=== PATIENT | female | born 1970 ===

== ENCOUNTER 2020-03-15 06:35 | Inpatient (IN) ==
[2020-03-15] MEDS ORDERED: ALBUTEROL 2.5 MG/3 ML NEB RESP TX PRN (08:34)
[2020-03-15] MEDS ORDERED: ONDANSETRON 4 MG/2 ML VIAL IV PRN (08:34)
[2020-03-15] MEDS ORDERED: DOCUSATE SODIUM 100 MG CAPSULE PO PRN (08:34)
[2020-03-15] MEDS ORDERED: hydrALAZINE 20 MG/1 ML VIAL IV PRN (08:42)
[2020-03-15] MEDS ORDERED: MYCOPHENOLATE MOFETIL 250 MG CAPSULE PO SCH (09:00)
[2020-03-15 09:56] LABS: ABG Base Excess -4.1 MMOL/L (-2.5-2.5); ABG HCO3 20.6 MMOL/L (20-26); ABG Oxygen Saturation 99.1 % (95-100); ABG PCO2 36.4 MM HG (35-48); ABG PH 7.371 (7.35-7.45); ABG PO2 213.6 MM HG (80-95); ABG TCO2 21.7 MMOL/L (23-27)
[2020-03-15] MEDS: APIXABAN 5 MG TABLET PO SCH ×2 (10:28→21:30)
[2020-03-15] MEDS: FUROSEMIDE 40 MG/4 ML VIAL IV SCH (10:28)
[2020-03-15] MEDS: carvediloL 6.25 MG TABLET PO SCH ×2 (10:28→21:30)
[2020-03-15] MEDS: PANTOPRAZOLE 40 MG VIAL IV SCH (10:33)
[2020-03-15] MEDS: methylPREDNISolone SOD SUC 40 MG/1 ML VIAL IV SCH ×2 (10:37→22:03)
[2020-03-15] MEDS: LEVOFLOXACIN INJ 750 MG in PREMIX 1 EACH IV SCH (10:40)
[2020-03-15 11:03] LABS: Basophils % 0.1 % (0.0-0.8); Hematocrit 33.9 VOL% (35.7-47.0); Immature Granulocytes Absolute 0.14 #; Lymphocytes # 0.6 10*3/uL (1.4-4.0); Lymphocytes % 3.8 % (21.3-54.2); Mean Corpuscular HGB Conc 32.4 GM/DL (32-36); Mean Corpuscular Volume 94.7 FL (87-102); Mean Platelet Volume 9.7 FL (9.6-12.0); Monocytes % 2.3 % (1.7-12.7); Neutrophils % 92.8 % (38.7-73.9); Platelet Count 128 T/CUMM (130-400); Red Blood Count 3.58 MC/CUMM (3.8-5.5); Red Cell Distribution Width 16.9 % (9.3-17.3); White Blood Count 14.4 T/CUMM (4-12)
[2020-03-15 11:24] LABS: Hypochromasia Slight; Lymphocytes 4 % (20-55); Ovalocytes Slight; Segmented Neutrophils 94 % (50-85); Total Cells Counted 100
[2020-03-15 11:35] LABS: Albumin 2.3 G/DL (3.4-5.0); Bilirubin,Total 0.7 MG/DL (0.2-1.0); Calcium 8.2 MG/DL (8.5-10.1); Osmolality,Calculated 266.7 MOS/KG (273-304); Total Protein 7.1 G/DL (6.4-8.3)
[2020-03-15] MEDS: NITROGLYCERIN 2% OINT 1 INCH/GM PACK TOP SCH ×2 (13:50→17:00)
[2020-03-15] MEDS ORDERED: MIDAZOLAM 100 MG in SODIUM CHLORIDE 0.9% 80 ML IV PRN (14:07)
[2020-03-15] MEDS ORDERED: MAGNESIUM SULF RIDER 4 GM in PREMIX 1 EACH IV PRN (15:14)
[2020-03-15] MEDS: MAGNESIUM SULF RIDER 2 GM in PREMIX 1 EACH IV PRN (17:00)
[2020-03-15] MEDS ORDERED: NOREPINEPHRINE 4 MG/4 ML VIAL IV ONE (17:51)
[2020-03-15] MEDS ORDERED: NOREPINEPHRINE 8 MG in SODIUM CHLORIDE 0.9% 242 ML IV PRN (18:18)
[2020-03-15] MEDS: MYCOPHENOLATE MOFETIL 250 MG CAPSULE PO SCH (21:30)
[2020-03-15] MEDS: FERROUS SULFATE 325 MG TABLET PO SCH (21:30)
[2020-03-16] MEDS: NITROGLYCERIN 2% OINT 1 INCH/GM PACK TOP SCH ×3 (00:30→11:52)
[2020-03-16] MEDS: MORPHINE 4 MG/1 ML VIAL IV PRN ×2 (01:00→09:39)
[2020-03-16 06:12] LABS: Basophils % 0.4 % (0.0-0.8); Hematocrit 29.6 VOL% (35.7-47.0); Hemoglobin 9.4 GM/DL (12.0-16.0); Immature Granulocytes Absolute 0.15 #; Lymphocytes # 0.1 10*3/uL (1.4-4.0); Lymphocytes % 1.7 % (21.3-54.2); Mean Corpuscular HGB Conc 31.8 GM/DL (32-36); Mean Corpuscular Volume 94.9 FL (87-102); Mean Platelet Volume 9.8 FL (9.6-12.0); Monocytes % 2.1 % (1.7-12.7); Neutrophils % 93.8 % (38.7-73.9); Platelet Count 105 T/CUMM (130-400); Red Blood Count 3.12 MC/CUMM (3.8-5.5); Red Cell Distribution Width 16.7 % (9.3-17.3); White Blood Count 7.5 T/CUMM (4-12)
[2020-03-16 06:29] LABS: Lymphocytes 2 % (20-55); Segmented Neutrophils 96 % (50-85); Total Cells Counted 100
[2020-03-16 06:30] LABS: Anisocytosis 1+; Ovalocytes Slight; Platelet Estimate Decreased
[2020-03-16 06:31] LABS: Ferritin 1049.4 ng/ml (8-252)
[2020-03-16 06:37] LABS: Osmolality,Calculated 272.2 MOS/KG (273-304)
[2020-03-16 06:45] LABS: ABG Base Excess -0.8 MMOL/L (-2.5-2.5); ABG HCO3 21.6 MMOL/L (20-26); ABG Oxygen Saturation 99.2 % (95-100); ABG PCO2 28.3 MM HG (35-48); ABG PO2 402.5 MM HG (80-95); ABG TCO2 22.4 MMOL/L (23-27)
[2020-03-16] MEDS: carvediloL 6.25 MG TABLET PO SCH ×2 (08:54→21:30)
[2020-03-16] MEDS: FERROUS SULFATE 325 MG TABLET PO SCH ×3 (08:54→21:30)
[2020-03-16] MEDS: FUROSEMIDE 40 MG/4 ML VIAL IV SCH (08:54)
[2020-03-16] MEDS: MYCOPHENOLATE MOFETIL 250 MG CAPSULE PO SCH ×2 (08:54→21:30)
[2020-03-16] MEDS: SPIRONOLACTONE 25 MG TABLET PO SCH (08:54)
[2020-03-16] MEDS: PANTOPRAZOLE 40 MG VIAL IV SCH (08:54)
[2020-03-16] MEDS: APIXABAN 5 MG TABLET PO SCH ×2 (08:54→21:30)
[2020-03-16] MEDS: methylPREDNISolone SOD SUC 40 MG/1 ML VIAL IV SCH ×2 (09:00→21:52)
[2020-03-16] MEDS: LEVOFLOXACIN INJ 750 MG in PREMIX 1 EACH IV SCH (09:00)
[2020-03-16] MEDS: FLUCONAZOLE 150 MG TABLET PO SCH (15:00)
[2020-03-17] MEDS: MORPHINE 4 MG/1 ML VIAL IV PRN (04:30)
[2020-03-17 05:31] LABS: Basophils % 0.4 % (0.0-0.8); Hematocrit 28.7 VOL% (35.7-47.0); Hemoglobin 9.3 GM/DL (12.0-16.0); Immature Granulocytes % 4.9 %; Immature Granulocytes Absolute 0.22 #; Lymphocytes # 0.1 10*3/uL (1.4-4.0); Lymphocytes % 1.8 % (21.3-54.2); Mean Corpuscular HGB Conc 32.4 GM/DL (32-36); Mean Corpuscular Volume 94.7 FL (87-102); Mean Platelet Volume 9.9 FL (9.6-12.0); Monocytes % 2.2 % (1.7-12.7); Neutrophils % 90.7 % (38.7-73.9); Platelet Count 102 T/CUMM (130-400); Red Blood Count 3.03 MC/CUMM (3.8-5.5); Red Cell Distribution Width 16.6 % (9.3-17.3)
[2020-03-17 05:32] LABS: White Blood Count 4.5 T/CUMM (4-12)
[2020-03-17 05:52] LABS: Hypochromasia 1+; Lymphocytes 2 % (20-55); Microcytosis Slight; Ovalocytes Slight; Platelet Estimate Decreased; Segmented Neutrophils 96 % (50-85); Total Cells Counted 100
[2020-03-17 06:00] LABS: Calcium 8.6 MG/DL (8.5-10.1)
[2020-03-17 06:01] LABS: Osmolality,Calculated 266.8 MOS/KG (273-304)
[2020-03-17] MEDS: PANTOPRAZOLE 40 MG TABLET PO SCH (08:12)
[2020-03-17] MEDS: carvediloL 6.25 MG TABLET PO SCH ×2 (08:12→20:09)
[2020-03-17] MEDS: FLUCONAZOLE 150 MG TABLET PO SCH (08:12)
[2020-03-17] MEDS: MYCOPHENOLATE MOFETIL 250 MG CAPSULE PO SCH ×2 (08:12→20:08)
[2020-03-17] MEDS: APIXABAN 5 MG TABLET PO SCH ×2 (08:13→20:09)
[2020-03-17] MEDS: FUROSEMIDE 40 MG/4 ML VIAL IV SCH (08:13)
[2020-03-17] MEDS: FERROUS SULFATE 325 MG TABLET PO SCH ×3 (08:13→20:08)
[2020-03-17] MEDS: SPIRONOLACTONE 25 MG TABLET PO SCH (08:13)
[2020-03-17] MEDS: LEVOFLOXACIN 750 MG TABLET PO SCH (08:17)
[2020-03-17] MEDS: methylPREDNISolone SOD SUC 40 MG/1 ML VIAL IV SCH ×2 (10:30→21:16)
[2020-03-17] MEDS: clonazePAM 0.5 MG TABLET PO PRN ×2 (13:38→20:08)
[2020-03-18 05:06] LABS: Basophils % 0.5 % (0.0-0.8); Eosinophils % 0.2 % (0.00-10.9); Hematocrit 28.3 VOL% (35.7-47.0); Hemoglobin 9.2 GM/DL (12.0-16.0); Immature Granulocytes % 5.1 %; Immature Granulocytes Absolute 0.21 #; Lymphocytes # 0.2 10*3/uL (1.4-4.0); Lymphocytes % 3.6 % (21.3-54.2); Mean Corpuscular HGB Conc 32.5 GM/DL (32-36); Mean Platelet Volume 10.4 FL (9.6-12.0); Monocytes % 4.4 % (1.7-12.7); Neutrophils % 86.2 % (38.7-73.9); Platelet Count 105 T/CUMM (130-400); Red Blood Count 2.98 MC/CUMM (3.8-5.5); Red Cell Distribution Width 16.7 % (9.3-17.3); White Blood Count 4.1 T/CUMM (4-12)
[2020-03-18 05:08] LABS: Calcium 8.6 MG/DL (8.5-10.1); Osmolality,Calculated 268.5 MOS/KG (273-304)
[2020-03-18 05:30] LABS: Eosinophils 1 % (0-10); Hypochromasia 1+; Lymphocytes 4 % (20-55); Microcytosis Slight; Ovalocytes Slight; Platelet Estimate Decreased; Segmented Neutrophils 92 % (50-85); Total Cells Counted 100
[2020-03-18] MEDS: carvediloL 6.25 MG TABLET PO SCH ×2 (08:30→20:08)
[2020-03-18] MEDS: APIXABAN 5 MG TABLET PO SCH ×2 (08:30→20:08)
[2020-03-18] MEDS: LEVOFLOXACIN 750 MG TABLET PO SCH (08:30)
[2020-03-18] MEDS: FERROUS SULFATE 325 MG TABLET PO SCH ×3 (08:30→20:08)
[2020-03-18] MEDS: MYCOPHENOLATE MOFETIL 250 MG CAPSULE PO SCH ×2 (08:30→20:08)
[2020-03-18] MEDS: SPIRONOLACTONE 25 MG TABLET PO SCH (08:30)
[2020-03-18] MEDS: PANTOPRAZOLE 40 MG TABLET PO SCH (08:31)
[2020-03-18] MEDS: FLUCONAZOLE 150 MG TABLET PO SCH (08:31)
[2020-03-18] MEDS: FUROSEMIDE 40 MG/4 ML VIAL IV SCH ×2 (08:32→17:53)
[2020-03-18] MEDS: methylPREDNISolone SOD SUC 40 MG/1 ML VIAL IV SCH ×2 (09:57→23:17)
[2020-03-18] MEDS ORDERED: DIGOXIN 0.5 MG/2 ML AMP ONE (12:58)
[2020-03-18] MEDS ORDERED: DIGOXIN 0.5 MG/2 ML AMP IV ONE ×2 (13:07→19:30)
[2020-03-18] MEDS: clonazePAM 0.5 MG TABLET PO PRN ×2 (15:30→23:17)
[2020-03-18] MEDS: CLORAZEPATE 7.5 MG TABLET PO PRN (19:37)
[2020-03-18] MEDS: ISOSORBIDE DINITRATE 10 MG TABLET PO SCH (20:09)
[2020-03-18] MEDS: hydrALAZINE 10 MG TABLET PO SCH (20:12)
[2020-03-19] MEDS: CLORAZEPATE 7.5 MG TABLET PO PRN (03:43)
[2020-03-19] MEDS: clonazePAM 0.5 MG TABLET PO PRN ×2 (03:43→20:44)
[2020-03-19 05:13] LABS: Hematocrit 30.5 VOL% (35.7-47.0); Hemoglobin 9.6 GM/DL (12.0-16.0); Immature Granulocytes % 2.9 %; Immature Granulocytes Absolute 0.07 #; Lymphocytes # 0.1 10*3/uL (1.4-4.0); Lymphocytes % 3.3 % (21.3-54.2); Mean Corpuscular HGB Conc 31.5 GM/DL (32-36); Mean Corpuscular Volume 96.5 FL (87-102); Monocytes % 2.9 % (1.7-12.7); Neutrophils % 90.9 % (38.7-73.9); Platelet Count 98 T/CUMM (130-400); Red Blood Count 3.16 MC/CUMM (3.8-5.5); Red Cell Distribution Width 16.7 % (9.3-17.3); White Blood Count 2.4 T/CUMM (4-12)
[2020-03-19 05:24] LABS: Calcium 8.8 MG/DL (8.5-10.1); Osmolality,Calculated 269.5 MOS/KG (273-304)
[2020-03-19 05:42] LABS: Hypochromasia 1+; Lymphocytes 2 % (20-55); Microcytosis Slight; Ovalocytes Slight; Platelet Estimate Decreased; Segmented Neutrophils 95 % (50-85); Total Cells Counted 100
[2020-03-19] MEDS ORDERED: LOSARTAN 25 MG TABLET PO SCH (09:00)
[2020-03-19] MEDS: MAGNESIUM SULF RIDER 2 GM in PREMIX 1 EACH IV PRN (10:17)
[2020-03-19] MEDS: MYCOPHENOLATE MOFETIL 250 MG CAPSULE PO SCH ×2 (10:18→20:45)
[2020-03-19] MEDS: PANTOPRAZOLE 40 MG TABLET PO SCH (10:18)
[2020-03-19] MEDS: ISOSORBIDE DINITRATE 10 MG TABLET PO SCH ×3 (10:18→20:45)
[2020-03-19] MEDS: FERROUS SULFATE 325 MG TABLET PO SCH ×3 (10:18→20:45)
[2020-03-19] MEDS: SPIRONOLACTONE 25 MG TABLET PO SCH (10:18)
[2020-03-19] MEDS: APIXABAN 5 MG TABLET PO SCH ×2 (10:19→20:44)
[2020-03-19] MEDS: LEVOFLOXACIN 750 MG TABLET PO SCH (10:19)
[2020-03-19] MEDS: carvediloL 6.25 MG TABLET PO SCH (10:19)
[2020-03-19] MEDS: hydrALAZINE 10 MG TABLET PO SCH ×3 (10:20→20:44)
[2020-03-19] MEDS ORDERED: DIGOXIN 0.125 MG TABLET PO SCH (13:00)
[2020-03-19] MEDS: FLUCONAZOLE 150 MG TABLET PO SCH (17:08)
[2020-03-19] MEDS: predniSONE 10 MG TABLET PO SCH (17:09)
[2020-03-19] MEDS: FUROSEMIDE 40 MG/4 ML VIAL IV SCH (17:14)
[2020-03-19] MEDS: methylPREDNISolone SOD SUC 40 MG/1 ML VIAL IV SCH (17:14)
[2020-03-19] MEDS: METOPROLOL SUCCINATE XL 25 MG TABLET PO SCH (20:45)
[2020-03-20 08:16] LABS: Hematocrit 29.3 VOL% (35.7-47.0); Hemoglobin 9.5 GM/DL (12.0-16.0); Immature Granulocytes % 0.5 %; Immature Granulocytes Absolute 0.01 #; Lymphocytes # 0.2 10*3/uL (1.4-4.0); Lymphocytes % 7.7 % (21.3-54.2); Mean Corpuscular HGB Conc 32.4 GM/DL (32-36); Mean Corpuscular Volume 93.9 FL (87-102); Mean Platelet Volume 9.7 FL (9.6-12.0); Monocytes % 2.9 % (1.7-12.7); Neutrophils % 88.9 % (38.7-73.9); Platelet Count 85 T/CUMM (130-400); Red Blood Count 3.12 MC/CUMM (3.8-5.5); Red Cell Distribution Width 16.9 % (9.3-17.3); White Blood Count 2.1 T/CUMM (4-12)
[2020-03-20 09:11] LABS: Albumin 2.3 G/DL (3.4-5.0); Bilirubin,Total 0.6 MG/DL (0.2-1.0); Calcium 8.7 MG/DL (8.5-10.1); Osmolality,Calculated 268.4 MOS/KG (273-304); Total Protein 6.6 G/DL (6.4-8.3)
[2020-03-20] MEDS: SACUBITRIL/VALSARTAN 49-51 MG TABLET PO SCH (09:28)
[2020-03-20] MEDS: FLUCONAZOLE 150 MG TABLET PO SCH (09:28)
[2020-03-20] MEDS: LEVOFLOXACIN 750 MG TABLET PO SCH (09:29)
[2020-03-20] MEDS: ISOSORBIDE DINITRATE 10 MG TABLET PO SCH ×3 (09:29→21:19)
[2020-03-20] MEDS: MYCOPHENOLATE MOFETIL 250 MG CAPSULE PO SCH ×2 (09:29→21:18)
[2020-03-20] MEDS: APIXABAN 5 MG TABLET PO SCH ×2 (09:29→21:18)
[2020-03-20] MEDS: PANTOPRAZOLE 40 MG TABLET PO SCH (09:29)
[2020-03-20] MEDS: hydrALAZINE 10 MG TABLET PO SCH ×3 (09:30→21:18)
[2020-03-20] MEDS: METOPROLOL SUCCINATE XL 25 MG TABLET PO SCH ×2 (09:30→21:19)
[2020-03-20] MEDS: SPIRONOLACTONE 25 MG TABLET PO SCH (09:30)
[2020-03-20] MEDS: predniSONE 10 MG TABLET PO SCH (09:31)
[2020-03-20] MEDS: FERROUS SULFATE 325 MG TABLET PO SCH ×3 (09:32→21:19)
[2020-03-20] MEDS: FUROSEMIDE 40 MG TABLET PO SCH (09:32)
[2020-03-20 12:02] LABS: Hypochromasia 1+; Microcytosis 1+; Platelet Estimate Decreased
[2020-03-21 06:24] LABS: Eosinophils # 0.1 10*3/uL (0.0-0.87); Eosinophils % 2.8 % (0.00-10.9); Hematocrit 32.8 VOL% (35.7-47.0); Hemoglobin 10.1 GM/DL (12.0-16.0); Immature Granulocytes % 0.5 %; Immature Granulocytes Absolute 0.01 #; Lymphocytes # 0.2 10*3/uL (1.4-4.0); Lymphocytes % 11.2 % (21.3-54.2); Mean Corpuscular HGB Conc 30.8 GM/DL (32-36); Mean Platelet Volume 10.5 FL (9.6-12.0); Monocytes % 3.7 % (1.7-12.7); Neutrophils % 81.8 % (38.7-73.9); Platelet Count 81 T/CUMM (130-400); Red Blood Count 3.38 MC/CUMM (3.8-5.5); White Blood Count 2.1 T/CUMM (4-12)
[2020-03-21 07:39] LABS: Osmolality,Calculated 265.5 MOS/KG (273-304)
[2020-03-21] MEDS: FUROSEMIDE 40 MG TABLET PO SCH (08:43)
[2020-03-21] MEDS: FERROUS SULFATE 325 MG TABLET PO SCH ×3 (08:43→21:06)
[2020-03-21] MEDS: predniSONE 10 MG TABLET PO SCH (08:43)
[2020-03-21] MEDS: MYCOPHENOLATE MOFETIL 250 MG CAPSULE PO SCH ×2 (08:43→21:06)
[2020-03-21] MEDS: hydrALAZINE 10 MG TABLET PO SCH ×3 (08:43→21:06)
[2020-03-21] MEDS: SPIRONOLACTONE 25 MG TABLET PO SCH (08:43)
[2020-03-21] MEDS: SACUBITRIL/VALSARTAN 49-51 MG TABLET PO SCH (08:43)
[2020-03-21] MEDS: LEVOFLOXACIN 750 MG TABLET PO SCH (08:44)
[2020-03-21] MEDS: PANTOPRAZOLE 40 MG TABLET PO SCH (08:44)
[2020-03-21] MEDS: METOPROLOL SUCCINATE XL 25 MG TABLET PO SCH ×2 (08:44→21:06)
[2020-03-21] MEDS: ISOSORBIDE DINITRATE 10 MG TABLET PO SCH ×3 (08:45→21:06)
[2020-03-21 09:57] LABS: Band Neutrophils 3 % (0-10); Eosinophils 1 % (0-10); Lymphocytes 8 % (20-55); Platelet Estimate Adequate; Polychromasia Slight; Segmented Neutrophils 87 % (50-85); Total Cells Counted 100
[2020-03-21 09:58] LABS: Ovalocytes Few; Schistocytes Slight
[2020-03-21] MEDS ORDERED: POTASSIUM CHLORIDE RIDER 10 MEQ in PREMIX 1 EACH IV PRN (14:48)
[2020-03-22 06:32] LABS: Hematocrit 31.4 VOL% (35.7-47.0); Immature Granulocytes % 0.5 %; Immature Granulocytes Absolute 0.01 #; Lymphocytes # 0.3 10*3/uL (1.4-4.0); Lymphocytes % 14.1 % (21.3-54.2); Mean Corpuscular HGB Conc 31.8 GM/DL (32-36); Mean Corpuscular Volume 94.6 FL (87-102); Mean Platelet Volume 10.7 FL (9.6-12.0); Monocytes % 3.4 % (1.7-12.7); Platelet Count 70 T/CUMM (130-400); Red Blood Count 3.32 MC/CUMM (3.8-5.5); Red Cell Distribution Width 17.2 % (9.3-17.3); White Blood Count 2.1 T/CUMM (4-12)
[2020-03-22 06:47] LABS: Calcium 8.6 MG/DL (8.5-10.1); Osmolality,Calculated 263.7 MOS/KG (273-304)
[2020-03-22 06:54] LABS: Anisocytosis 1+; Band Neutrophils 7 % (0-10); Eosinophils 1 % (0-10); Hypochromasia 1+; Lymphocytes 9 % (20-55); Microcytosis 1+; Ovalocytes Slight; Segmented Neutrophils 78 % (50-85); Total Cells Counted 100
[2020-03-22 06:55] LABS: Platelet Estimate Decreased
[2020-03-22] MEDS ORDERED: diphenhydrAMINE CAP 25 MG CAPSULE PO ONE (09:00)
[2020-03-22] MEDS ORDERED: DIAZEPAM 5 MG TABLET PO ONE (09:00)
[2020-03-22] MEDS: ISOSORBIDE DINITRATE 10 MG TABLET PO SCH ×3 (09:55→21:29)
[2020-03-22] MEDS: predniSONE 10 MG TABLET PO SCH (09:55)
[2020-03-22] MEDS: METOPROLOL SUCCINATE XL 25 MG TABLET PO SCH ×2 (09:55→21:29)
[2020-03-22] MEDS: FUROSEMIDE 40 MG TABLET PO SCH (09:55)
[2020-03-22] MEDS: SPIRONOLACTONE 25 MG TABLET PO SCH (09:55)
[2020-03-22] MEDS: FERROUS SULFATE 325 MG TABLET PO SCH ×3 (09:55→21:29)
[2020-03-22] MEDS: PANTOPRAZOLE 40 MG TABLET PO SCH (09:55)
[2020-03-22] MEDS: hydrALAZINE 10 MG TABLET PO SCH ×3 (09:55→21:29)
[2020-03-22] MEDS: MYCOPHENOLATE MOFETIL 250 MG CAPSULE PO SCH ×2 (09:55→21:29)
[2020-03-22] MEDS: SACUBITRIL/VALSARTAN 49-51 MG TABLET PO SCH (09:55)
[2020-03-22] MEDS ORDERED: MIDAZOLAM 2 MG/2 ML VIAL ONE (10:26)
[2020-03-22] MEDS ORDERED: VERAPAMIL 5 MG/2 ML VIAL ONE (10:26)
[2020-03-22] MEDS ORDERED: LIDOCAINE 1% 20 ML VIAL ONE (10:26)
[2020-03-22] MEDS ORDERED: HYDROmorphone 2 MG/1 ML VIAL ONE (10:26)
[2020-03-22] MEDS ORDERED: NITROGLYCERIN DRIP 50 MG/250 ML BOTTLE IV ONE (10:26)
[2020-03-22] MEDS ORDERED: ASPIRIN 325 MG TABLET ONE (10:37)
[2020-03-22] MEDS ORDERED: ENOXAPARIN 30 MG/0.3 ML SYRINGE ONE (11:07)
[2020-03-22] MEDS ORDERED: SODIUM CHLORIDE 0.9% 500 ML IV ONE (17:07)
[2020-03-22] MEDS: SODIUM CHLORIDE 0.9% 1,000 ML IV SCH (17:55)
[2020-03-22 18:51] LABS: Hematocrit 27.3 VOL% (35.7-47.0); Hemoglobin 8.7 GM/DL (12.0-16.0)
[2020-03-23] MEDS ORDERED: ACETAMINOPHEN 325 MG TABLET PO PRN (02:56)
[2020-03-23 05:55] LABS: Eosinophils % 2.9 % (0.00-10.9); Hematocrit 25.5 VOL% (35.7-47.0); Hemoglobin 8.1 GM/DL (12.0-16.0); Immature Granulocytes Absolute 0.01 #; Lymphocytes # 0.2 10*3/uL (1.4-4.0); Lymphocytes % 19.2 % (21.3-54.2); Mean Corpuscular HGB Conc 31.8 GM/DL (32-36); Mean Corpuscular Volume 95.9 FL (87-102); Mean Platelet Volume 11.2 FL (9.6-12.0); Monocytes % 10.6 % (1.7-12.7); Neutrophils % 66.3 % (38.7-73.9); Platelet Count 66 T/CUMM (130-400); Red Blood Count 2.66 MC/CUMM (3.8-5.5); Red Cell Distribution Width 17.4 % (9.3-17.3)
[2020-03-23 06:18] LABS: Calcium 7.7 MG/DL (8.5-10.1); Osmolality,Calculated 266.7 MOS/KG (273-304)
[2020-03-23 06:26] LABS: Band Neutrophils 2 % (0-10); Eosinophils 2 % (0-10); Lymphocytes 15 % (20-55); Segmented Neutrophils 72 % (50-85); Total Cells Counted 100
[2020-03-23 06:27] LABS: Anisocytosis 1+; Hypochromasia 1+; Microcytosis 1+; Ovalocytes Slight
[2020-03-23 06:28] LABS: Platelet Estimate Decreased
[2020-03-23] MEDS: MYCOPHENOLATE MOFETIL 250 MG CAPSULE PO SCH ×2 (09:45→21:16)
[2020-03-23] MEDS: predniSONE 10 MG TABLET PO SCH (09:45)
[2020-03-23] MEDS: SACUBITRIL/VALSARTAN 49-51 MG TABLET PO SCH (09:45)
[2020-03-23] MEDS: FERROUS SULFATE 325 MG TABLET PO SCH ×3 (09:45→21:16)
[2020-03-23] MEDS: PANTOPRAZOLE 40 MG TABLET PO SCH (09:45)
[2020-03-23] MEDS: SPIRONOLACTONE 25 MG TABLET PO SCH (10:04)
[2020-03-23] MEDS: APIXABAN 5 MG TABLET PO SCH (10:05)
[2020-03-23] MEDS: FUROSEMIDE 40 MG TABLET PO SCH (10:05)
[2020-03-23] MEDS: hydrALAZINE 10 MG TABLET PO SCH (10:07)
[2020-03-23] MEDS: ISOSORBIDE DINITRATE 10 MG TABLET PO SCH (10:09)
[2020-03-23] MEDS: METOPROLOL SUCCINATE XL 25 MG TABLET PO SCH (10:10)
[2020-03-23] MEDS: CEFEPIME 1,000 MG in SODIUM CHLORIDE 0.9% 100 ML IV SCH ×3 (12:49→23:50)
[2020-03-23 15:28] LABS: Bacteria,Urine Occasional /HPF (Few); Bilirubin,Urine Negative (Negative); Blood, Urine Small mg/dL (Negative); Glucose,Urine (UA) Negative (Negative); Ketones,Urine Negative (Negative); Mucus,Urine Occasional /LPF (Occasional); Nitrite,Urine Negative (Negative); Protein,Urine Negative; RBC,Urine 1 /HPF (0-4); Urine Appearance CLEAR (Clear); Urine Color Yellow (Yellow); Urine Specific Gravity 1.012 (1.001-1.035); Urine Urobilinogen < 2.0 EU/DL (0.2-1.0); WBC,Urine <1 /HPF (0-6)
[2020-03-23] MEDS: FILGRASTIM-SNDZ 300 MCG/0.5 ML SYRINGE SUBCUT SCH (16:14)
[2020-03-23] MEDS: SODIUM CHLORIDE 0.9% 1,000 ML IV SCH (21:18)
[2020-03-24 05:36] LABS: Eosinophils % 1.6 % (0.00-10.9); Hematocrit 24.2 VOL% (35.7-47.0); Hemoglobin 7.6 GM/DL (12.0-16.0); Immature Granulocytes % 1.6 %; Immature Granulocytes Absolute 0.04 #; Lymphocytes # 0.2 10*3/uL (1.4-4.0); Lymphocytes % 8.2 % (21.3-54.2); Mean Corpuscular HGB Conc 31.4 GM/DL (32-36); Mean Corpuscular Volume 96.4 FL (87-102); Mean Platelet Volume 10.9 FL (9.6-12.0); Monocytes % 4.5 % (1.7-12.7); Neutrophils % 84.1 % (38.7-73.9); Platelet Count 62 T/CUMM (130-400); Red Blood Count 2.51 MC/CUMM (3.8-5.5); Red Cell Distribution Width 17.5 % (9.3-17.3); White Blood Count 2.4 T/CUMM (4-12)
[2020-03-24 05:53] LABS: Albumin 1.9 G/DL (3.4-5.0); Bilirubin,Total 0.5 MG/DL (0.2-1.0); Calcium 7.5 MG/DL (8.5-10.1); Osmolality,Calculated 272.1 MOS/KG (273-304); Total Protein 5.7 G/DL (6.4-8.3)
[2020-03-24 06:02] LABS: Band Neutrophils 6 % (0-10); Eosinophils 3 % (0-10); Hypochromasia 2+; Lymphocytes 8 % (20-55); Ovalocytes Slight; Platelet Estimate Decreased; Segmented Neutrophils 77 % (50-85); Total Cells Counted 100
[2020-03-24 06:03] LABS: Microcytosis 1+
[2020-03-24] MEDS: CEFEPIME 1,000 MG in SODIUM CHLORIDE 0.9% 100 ML IV SCH ×3 (06:25→18:04)
[2020-03-24] MEDS ORDERED: SODIUM CHLORIDE 0.9% 1,000 ML IV PRN (08:27)
[2020-03-24] MEDS ORDERED: FUROSEMIDE 20 MG/2 ML VIAL IV ONE (08:29)
[2020-03-24] MEDS: predniSONE 10 MG TABLET PO SCH (08:43)
[2020-03-24] MEDS: MYCOPHENOLATE MOFETIL 250 MG CAPSULE PO SCH ×2 (08:43→21:04)
[2020-03-24] MEDS: SACUBITRIL/VALSARTAN 49-51 MG TABLET PO SCH (08:43)
[2020-03-24] MEDS: FERROUS SULFATE 325 MG TABLET PO SCH ×3 (08:43→21:05)
[2020-03-24] MEDS: PANTOPRAZOLE 40 MG TABLET PO SCH (08:43)
[2020-03-24] MEDS: FILGRASTIM-SNDZ 300 MCG/0.5 ML SYRINGE SUBCUT SCH (08:45)
[2020-03-24 08:46] LABS: % Iron Saturation 35.7 % (18-50)
[2020-03-24 09:57] LABS: Folate 3.8 NG/ML (5.4-24.0)
[2020-03-24] MEDS: METOPROLOL SUCCINATE XL 25 MG TABLET PO SCH (10:46)
[2020-03-24 17:50] LABS: Hematocrit 34.3 VOL% (35.7-47.0); Hemoglobin 11.2 GM/DL (12.0-16.0)
[2020-03-25] MEDS: CEFEPIME 1,000 MG in SODIUM CHLORIDE 0.9% 100 ML IV SCH ×4 (00:32→17:52)
[2020-03-25 04:33] LABS: Basophils % 0.5 % (0.0-0.8); Eosinophils # 0.1 10*3/uL (0.0-0.87); Eosinophils % 1.6 % (0.00-10.9); Hematocrit 33.3 VOL% (35.7-47.0); Hemoglobin 10.9 GM/DL (12.0-16.0); Immature Granulocytes % 1.3 %; Immature Granulocytes Absolute 0.05 #; Lymphocytes # 0.2 10*3/uL (1.4-4.0); Lymphocytes % 5.2 % (21.3-54.2); Mean Corpuscular HGB Conc 32.7 GM/DL (32-36); Mean Platelet Volume 10.3 FL (9.6-12.0); Neutrophils % 86.4 % (38.7-73.9); Platelet Count 72 T/CUMM (130-400); Red Blood Count 3.62 MC/CUMM (3.8-5.5); Red Cell Distribution Width 17.7 % (9.3-17.3); White Blood Count 3.8 T/CUMM (4-12)
[2020-03-25 05:43] LABS: Anisocytosis 1+; Band Neutrophils 7 % (0-10); Eosinophils 2 % (0-10); Hypochromasia 1+; Lymphocytes 6 % (20-55); Macrocytosis 1+; Metamyelocytes 4 %; Platelet Estimate Decreased; Segmented Neutrophils 75 % (50-85); Total Cells Counted 100
[2020-03-25] MEDS: SACUBITRIL/VALSARTAN 49-51 MG TABLET PO SCH (09:02)
[2020-03-25] MEDS: predniSONE 10 MG TABLET PO SCH (09:03)
[2020-03-25] MEDS: MYCOPHENOLATE MOFETIL 250 MG CAPSULE PO SCH ×2 (09:04→20:31)
[2020-03-25] MEDS: METOPROLOL SUCCINATE XL 25 MG TABLET PO SCH (09:04)
[2020-03-25] MEDS: PANTOPRAZOLE 40 MG TABLET PO SCH (09:04)
[2020-03-25] MEDS: FERROUS SULFATE 325 MG TABLET PO SCH ×3 (09:04→20:31)
[2020-03-25] MEDS: FOLIC ACID 1 MG TABLET PO SCH (09:06)
[2020-03-25] MEDS: FILGRASTIM-SNDZ 300 MCG/0.5 ML SYRINGE SUBCUT SCH (09:07)
[2020-03-25] MEDS: SODIUM CHLORIDE 0.9% 1,000 ML IV SCH (14:07)
[2020-03-26] MEDS: CEFEPIME 1,000 MG in SODIUM CHLORIDE 0.9% 100 ML IV SCH ×3 (00:13→12:06)
[2020-03-26 05:26] LABS: Basophils % 0.6 % (0.0-0.8); Eosinophils # 0.1 10*3/uL (0.0-0.87); Eosinophils % 1.4 % (0.00-10.9); Hematocrit 34.3 VOL% (35.7-47.0); Hemoglobin 11.5 GM/DL (12.0-16.0); Immature Granulocytes % 0.6 %; Immature Granulocytes Absolute 0.04 #; Lymphocytes # 0.3 10*3/uL (1.4-4.0); Lymphocytes % 5.1 % (21.3-54.2); Mean Corpuscular HGB Conc 33.5 GM/DL (32-36); Mean Corpuscular Volume 90.5 FL (87-102); Mean Platelet Volume 10.7 FL (9.6-12.0); Monocytes % 4.3 % (1.7-12.7); Platelet Count 88 T/CUMM (130-400); Red Blood Count 3.79 MC/CUMM (3.8-5.5); Red Cell Distribution Width 18.2 % (9.3-17.3); White Blood Count 6.3 T/CUMM (4-12)
[2020-03-26 05:41] LABS: Calcium 7.8 MG/DL (8.5-10.1)
[2020-03-26 05:53] LABS: Anisocytosis 1+; Band Neutrophils 33 % (0-10); Burr Cells Few; Eosinophils 1 % (0-10); Lymphocytes 5 % (20-55); Platelet Estimate Decreased; Poikilocytosis Slight; Segmented Neutrophils 57 % (50-85); Total Cells Counted 100
[2020-03-26] MEDS: SACUBITRIL/VALSARTAN 49-51 MG TABLET PO SCH (08:56)
[2020-03-26] MEDS: FUROSEMIDE 40 MG TABLET PO SCH (08:56)
[2020-03-26] MEDS: MYCOPHENOLATE MOFETIL 250 MG CAPSULE PO SCH (08:56)
[2020-03-26] MEDS: FILGRASTIM-SNDZ 300 MCG/0.5 ML SYRINGE SUBCUT SCH (08:57)
[2020-03-26] MEDS: FOLIC ACID 1 MG TABLET PO SCH (08:57)
[2020-03-26] MEDS: FERROUS SULFATE 325 MG TABLET PO SCH (08:57)
[2020-03-26] MEDS: METOPROLOL SUCCINATE XL 25 MG TABLET PO SCH (08:57)
[2020-03-26] MEDS: PANTOPRAZOLE 40 MG TABLET PO SCH (08:57)
[2020-03-26] MEDS: predniSONE 10 MG TABLET PO SCH (08:57)
[2020-03-26] MEDS ORDERED: predniSONE 10 MG TABLET PO SCH (09:18)
[2020-03-26 10:57] VITALS: BP 133/81
== END 2020-03-26 14:00 | disposition home or self-care (01) | DRG 286 ==
LOC: N.CC → OBSVTOIN 08:30 → SUATTDRO 08:30 → N.3E 03-18 20:44 → N.4E 03-24 17:30
PROVIDERS: ADMIT Internal Medicine; ATTEND Internal Medicine
PROC: CLCCHCL (ICD-10-PCS; 2020-03-22 11:45)